=== PATIENT | male | born 1980 | race Caucasian/White ===

== ENCOUNTER 2017-01-12 22:27 | Emergency (ER) | payer SELFPAY ==
[2017-01-13 00:43] VITALS: BP 124/75
== END 2017-01-13 00:43 | disposition home or self-care (01) ==
LOC: ED 22:27
DX: S50.311A Abrasion of right elbow, initial encounter (principal); Z79.899 Other long term (current) drug therapy; W22.03XA Walked into furniture, initial encounter; Y93.89 Activity, other specified; Y92.89 Other specified places as the place of occurrence of the external cause; Y99.8 Other external cause status
CPT/HCPCS: 90715

== ENCOUNTER 2018-08-28 13:05 | Emergency (ER) | payer OTHER ==
[~2018-08-28] VITALS: Ht 190.5 cm; Wt 86.2 kg
[2018-08-28 13:10] VITALS: BP 129/73; Ht 190.5 cm; Wt 86.2 kg
== END 2018-08-28 14:41 | disposition left against medical advice (07) ==
LOC: ED 13:05
DX: Z53.21 Procedure and treatment not carried out due to patient leaving prior to being seen by health care provider (principal)

== ENCOUNTER 2018-08-28 15:40 | Emergency (ER) | payer OTHER ==
[~2018-08-28] VITALS: Ht 190.5 cm; Wt 86.2 kg
[2018-08-28 16:13] VITALS: Ht 190.5 cm; Wt 86.2 kg
[2018-08-28 18:05] VITALS: BP 108/60
== END 2018-08-28 18:05 | disposition home or self-care (01) ==
LOC: ED 15:40
DX: J45.909 Unspecified asthma, uncomplicated (principal); F32.9 Major depressive disorder, single episode, unspecified; Z88.0 Allergy status to penicillin